=== PATIENT | female | born 2000 ===

== ENCOUNTER 2019-02-11 00:06 | Emergency (ER) | payer SELFPAY ==
[2019-02-11] MEDS ORDERED: Adacel (T-DAP) 0.5 ML SYRINGE ONE (00:21)
== END 2019-02-11 00:25 | disposition home or self-care (01) ==
LOC: BURERS 00:06
DX: S91.051A Open bite, right ankle, initial encounter (principal); S61.451A Open bite of right hand, initial encounter; W59.11XA Bitten by nonvenomous snake, initial encounter
CPT/HCPCS: 90471; 90715